=== PATIENT | female | born 1990 | race Caucasian/White ===

== ENCOUNTER 2017-08-21 00:07 | Emergency (ER) | payer OTHER ==
[~2017-08-21] VITALS: Ht 157.5 cm; Wt 82.7 kg
[2017-08-21] MEDS ORDERED: HALO1 PO (00:22)
[2017-08-21] MEDS ORDERED: BENZ1TAB10 PO (00:22)
[2017-08-21] MEDS ORDERED: OLAN10TA3 PO (00:22)
[2017-08-21] MEDS ORDERED: VIST50 PO (00:22)
[2017-08-21] MEDS ORDERED: DOCU250C91 PO (00:22)
[2017-08-21 01:19] LABS: AMPHET/METH SCREEN,URINE NEGATIVE (NEGATIVE); BARBITURATE SCREEN, URINE NEGATIVE (NEGATIVE); BENZODIAZEPINES SCREEN,URINE NEGATIVE (NEGATIVE); CANNABINOID SCREEN,URINE POSITIVE (NEGATIVE); COCAINE SCREEN,URINE NEGATIVE (NEGATIVE); METHADONE SCREEN, URINE NEGATIVE (NEGATIVE); OPIATE SCREEN,URINE NEGATIVE (NEGATIVE)
[2017-08-21 01:21] LABS: PHENCYCLIDINE SCREEN,URINE NEGATIVE (NEGATIVE)
[2017-08-21 04:00] VITALS: BP 121/74
== END 2017-08-21 05:11 | disposition home or self-care (01) ==
LOC: EMS 00:09
DX: F10.129 Alcohol abuse with intoxication, unspecified (principal); R51 Headache; F17.210 Nicotine dependence, cigarettes, uncomplicated; F12.90 Cannabis use, unspecified, uncomplicated; Z88.1 Allergy status to other antibiotic agents; Y90.6 Blood alcohol level of 120-199 mg/100 ml
CPT/HCPCS: 36415; 80307; 81025; 99284; G0480